=== PATIENT | male | born 1970 | race Caucasian/White ===

== ENCOUNTER 2016-06-22 07:02 | Emergency (ER) | payer OTHER ==
[2016-06-22 07:17] VITALS: BP 104/62
--- NOTE | 2016-06-22 08:45 | UC ---
Nathan Huerta Karl, scribed for Sera Paris DO on 06/22/16 at 0715 . Throat Pain/Nasal Nestor HPI - HPI Summary HPI Summary: Pt is a 45 y/o male that presents to [facility] c/o sinus pressure and pain that began 5 days ago. Pt reported that his congestion and pain has progressed to his chest and in his ears. Pt stated he can feel his congestion begin in his chest and work its way up his throat and into his sinuses. Pt stated that he has suffered from asthma related allergy issues that have been causing him congestion every 6 weeks and feels as if today "the cycle is beginning again." Pt also gets minor relief from a holistic nasal inhaler and a steroid inhaler. Pt reported a productive cough with white sputum, ear ache, and difficulty breathing. Pt denied fever, chills, diaphoresis, sore throat, abd pain, nausea, and ADAMS. Hx: asthma, seasonal/environmental allergies. - History of Current Complaint Stated Complaint: SINUS CONGESTION Hx Obtained From: Patient Onset/Duration: Gradual Onset, Lasting Days, Still Present Severity: Mild Pain Intensity: 4 - sinus pain Pain Scale Used: 0-10 Numeric Cough: Productive - w/ white sputum Associated Signs & Symptoms: Positive: Sinus Discomfort, Nasal Discharge. Negative: Dysphagia, Drooling, Fever Related History: Seasonal Allergies - Allergies/Home Medications Allergies/Adverse Reactions: Allergies Allergy/AdvReac Type Severity Reaction Status Date / Time Seasonal/Environmental Allergy Congestion Uncoded 01/21/16 07:18 Allergies PMH/Surg Hx/FS Hx/Imm Hx Previously Healthy: Yes Endocrine History Of: Denies: Diabetes, Thyroid Disease Cardiovascular History Of: Denies: Cardiac Disorders, Hypertension Respiratory History Of: Reports: Asthma Denies: COPD GI/ History Of: Denies: Ulcer - Surgical History Surgical History: None Surgery Procedure, Year, and Place: [place] [id number] - Family History Known Family History: Positive: Other - Lung CA Negative: Hypertension, Diabetes - Social History Occupation: Employed Full-time Alcohol Use: Weekly Alcohol Amount: 3/WEEK Substance Use Type: None Smoking Status (MU): Never Smoked Tobacco Have You Smoked in the Last Year: No - Immunization History Most Recent Influenza Vaccination: 2014/2015 Review of Systems Constitutional: Negative Skin: Negative Eyes: Negative ENT: Ear Ache, Other - sinus congestion Respiratory: Cough, Other - difficulty breathing Cardiovascular: Negative Gastrointestinal: Negative Genitourinary: Negative Motor: Negative Neurovascular: Negative Musculoskeletal: Negative Neurological: Negative Psychological: Negative All Other Systems Reviewed And Are Negative: Yes Physical Exam Triage Information Reviewed: Yes Appearance: Well-Appearing, No Pain Distress, Well-Nourished Vital Signs: Initial Vital Signs Temp 97.7 F 06/22/16 07:11 Pulse 90 06/22/16 07:11 Resp 16 06/22/16 07:11 BP 104/62 06/22/16 07:11 Pulse Ox 97 06/22/16 07:11 Vital Signs Reviewed: Yes Eyes: Positive: Conjunctiva Clear. Negative: Discharge ENT: Positive: Hearing grossly normal, Pharynx normal, Nasal congestion, TMs normal, Other: - maxillary sinus tenderness, pale boggy nasal mucosa. Negative : Tonsillar swelling, Tonsillar exudate, Trismus, Muffled/hoarse voice Dental Exam: Normal Neck exam: Normal Neck: Positive: Supple Respiratory: Positive: Lungs clear, No respiratory distress, No accessory muscle use, Other: - prolonged expiration Cardiovascular: Positive: RRR, No Murmur Musculoskeletal Exam: Normal Neurological: Positive: Alert, Muscle Tone Normal Psychological Exam: Normal Psychological: Positive: Age Appropriate Behavior Skin Exam: Normal, Other - warm, dry, normal color Throat Pain/Nasal Course/Dx - Differential Dx/Diagnosis Differential Diagnosis/HQI/PQRI: Otitis Media, Sinusitis, URI Provider Diagnoses: allergic rhinitis, asthma Discharge - Discharge Plan Condition: Stable Disposition: HOME Prescriptions: predniSONE TAB* [Deltasone TAB*] 40 mg PO DAILY #10 tab Patient Education Materials: Asthma (ED), Allergic Rhinitis (ED) Referrals: Hannah Sandhu MD [Primary Care Provider] - If Needed Additional Instructions: CORTICOSTEROID MEDICATION: You have been given a medicine of the cortisone class. This medication is used to control inflammation or allergy. It is usually only given for a short period of time, until the acute process subsides. There are usually no side effects from short-term use of cortisone-like medications. Some persons feel an increased sense of well-being and are not sleepy at bedtime. Long-term use of cortisone medications is best avoided, unless required for a severe condition. If your condition does not remit, or relapses after the course of corticosteroid medication, you should consult your physician. Contact the physician if you develop lightheadedness, black or tarry stools , swelling of the legs, or significant rapid change in weight. The documentation as recorded by the Nathan rushing Karl accurately reflects the service I personally performed and the decisions made by me, Sera Paris DO.
== END 2016-06-22 08:00 | disposition home or self-care (01) ==
LOC: UCEAST 07:02
DX: J45.909 Unspecified asthma, uncomplicated (principal)
CPT/HCPCS: 99212; G0463

== ENCOUNTER 2016-08-13 17:25 | Emergency (ER) | payer OTHER ==
[2016-08-13 17:59] VITALS: BP 125/66
[2016-08-13] MEDS ORDERED: Acetaminophen TAB* 325 MG PO ONE (18:20)
[2016-08-13] MEDS ORDERED: Polymyx/Trimethoprim OPTH* 10 ML BTL BOTH EYES ONE (18:21)
--- NOTE | 2016-08-13 18:49 | UC ---
FLU HPI - HPI Summary HPI Summary: pt presents with c/o generalized malaise, chills, cough, nasal congestion, "eye burning" and feels "just miserable" Symptoms have been worsening over the last 4 days. - History of Current Complaint Chief Complaint: UCRespiratory Stated Complaint: RESP COMPLAINT Time Seen by Provider: 08/13/16 18:04 Hx Obtained From: Patient Onset/Duration: Gradual Onset, Lasting Days - 4 Associated Signs & Symptoms: Positive: Fever, Myalgia, Cough, Nasal Congestion - Allergy/Home Medications Allergies/Adverse Reactions: Allergies Allergy/AdvReac Type Severity Reaction Status Date / Time Seasonal/Environmental Allergy Congestion Uncoded 01/21/16 07:18 Allergies PMH/Surg Hx/FS Hx/Imm Hx Previously Healthy: Yes Endocrine History Of: Denies: Diabetes, Thyroid Disease Cardiovascular History Of: Denies: Cardiac Disorders, Hypertension Respiratory History Of: Reports: Asthma Denies: COPD GI/ History Of: Denies: Ulcer - Surgical History Surgical History: None Surgery Procedure, Year, and Place: [place] [address] - Family History Known Family History: Positive: Other - Lung CA Negative: Hypertension, Diabetes - Social History Alcohol Use: Weekly Alcohol Amount: 3/WEEK Substance Use Type: None Smoking Status (MU): Never Smoked Tobacco Have You Smoked in the Last Year: No - Immunization History Most Recent Influenza Vaccination: 2014/2015 Review of Systems Constitutional: Fever, Chills, Fatigue Skin: Negative Eyes: Drainage, Eye Redness, Photophobia, Other - "burning" sensation ENT: Sore Throat Respiratory: Cough, Other - wheezing Cardiovascular: Negative Gastrointestinal: Negative Genitourinary: Negative Motor: Negative Neurovascular: Negative Musculoskeletal: Myalgia Neurological: Negative Psychological: Negative All Other Systems Reviewed And Are Negative: Yes Physical Exam Triage Information Reviewed: Yes Appearance: Ill-Appearing Vital Signs: Initial Vital Signs Temp 100.9 F 08/13/16 17:53 Pulse 92 08/13/16 17:53 Resp 16 08/13/16 17:53 BP 125/66 08/13/16 17:53 Pulse Ox 95 08/13/16 17:53 Vital Signs Reviewed: Yes Eyes: Positive: Conjunctiva Inflamed, Discharge - yellow, purulent ENT Exam: Other ENT: Positive: Nasal congestion, TM bulging - Right TM, TM red - right TM Neck exam: Normal Respiratory Exam: Other Respiratory: Positive: Wheezing Cardiovascular Exam: Normal Musculoskeletal Exam: Normal Neurological Exam: Normal Psychological Exam: Normal Skin Exam: Normal Flu Course/Dx - Differential Dx/Diagnosis Differential Diagnosis/HQI/PQRI: Bronchitis, Influenza, Other - otits media right ear, conjunctivitis Provider Diagnoses: conjunctivitis. otitis media right ear. Bronchitis Discharge - Discharge Plan Condition: Stable Disposition: HOME Prescriptions: Azithromycin TAB* [Zithromax TAB (Z-AMISHA) 250 mg #6 tabs] 2 tab PO .TODAY, THEN 1 DAILY #1 amisha Patient Education Materials: Otitis Media (ED), Acute Bronchitis (ED), Conjunctivitis (ED) Forms: *Work Release Referrals: Hannah Sandhu MD [Primary Care Provider] -
== END 2016-08-13 19:30 | disposition home or self-care (01) ==
LOC: UCEAST 17:25
DX: H10.30 Unspecified acute conjunctivitis, unspecified eye (principal); H66.91 Otitis media, unspecified, right ear; J40 Bronchitis, not specified as acute or chronic
CPT/HCPCS: 87502; 99212; A9270-GY; G0463

== ENCOUNTER 2016-08-14 15:37 | Emergency (ER) | payer OTHER ==
[2016-08-14 15:45] VITALS: BP 104/61
--- NOTE | 2016-08-14 16:13 | UC ---
Eye Complaint HPI - HPI Summary HPI Summary: increases redness and itching around eyes after beginning Polytrim yesterday - History of Current Complaint Chief Complaint: UCEye Stated Complaint: EYE COMPLAINT Time Seen by Provider: 08/14/16 15:40 Hx Obtained From: Patient Onset/Duration: Sudden Onset, Lasting Days - 1, Still Present Timing: Constant Severity Initially: Mild Severity Currently: Moderate Pain Intensity: 3 Pain Scale Used: 0-10 Numeric Location of Injury: Eye Lid (lower), Eye Lid (upper) Aggravating Factor(s): Nothing Alleviating Factor(s): Nothing Associated Signs And Symptoms: Positive: Drainage (Clear). Negative: Vision Impairment Bilateral, Vision Impairment Right, Vision Impairment Left - Allergies/Home Medications Allergies/Adverse Reactions: Allergies Allergy/AdvReac Type Severity Reaction Status Date / Time Seasonal/Environmental Allergy Congestion Uncoded 01/21/16 07:18 Allergies PMH/Surg Hx/FS Hx/Imm Hx Previously Healthy: No Respiratory History Of: Reports: Asthma Denies: COPD GI/ History Of: Denies: Ulcer - Surgical History Surgical History: None Surgery Procedure, Year, and Place: [place] [id number] - Family History Known Family History: Positive: None, Other - Lung CA Negative: Hypertension, Diabetes - Social History Occupation: Employed Full-time Lives: With Family Alcohol Use: Weekly Alcohol Amount: 3/WEEK Substance Use Type: None Smoking Status (MU): Never Smoked Tobacco Have You Smoked in the Last Year: No - Immunization History Most Recent Influenza Vaccination: Review of Systems Constitutional: Negative Skin: Negative Eyes: Negative, Eye Redness ENT: Negative Respiratory: Negative Cardiovascular: Negative Gastrointestinal: Negative Genitourinary: Negative Motor: Negative Neurovascular: Negative Musculoskeletal: Negative Neurological: Negative Psychological: Negative All Other Systems Reviewed And Are Negative: Yes Physical Exam Triage Information Reviewed: Yes Appearance: Well-Appearing, No Pain Distress, Well-Nourished Vital Signs: Initial Vital Signs Pulse 84 08/14/16 15:41 Resp 18 08/14/16 15:41 BP 104/61 08/14/16 15:41 Pulse Ox 94 08/14/16 15:41 Eye Exam: Normal Eyes: Positive: Conjunctiva Inflamed, Other: - erythema around both eye with fluid filled swelling ENT Exam: Normal ENT: Positive: Normal ENT inspection, Hearing grossly normal, Pharynx normal, TMs normal. Negative: Nasal congestion, Nasal drainage, Tonsillar swelling, Tonsillar exudate, Trismus, Muffled/hoarse voice Dental Exam: Normal Neck exam: Normal Neck: Positive: Supple, Nontender, No Lymphadenopathy Respiratory Exam: Normal Respiratory: Positive: Chest non-tender, Lungs clear, Normal breath sounds, No respiratory distress, No accessory muscle use Cardiovascular Exam: Normal Cardiovascular: Positive: RRR, No Murmur, Pulses Normal, Brisk Capillary Refill Musculoskeletal Exam: Normal Musculoskeletal: Positive: Strength Intact, ROM Intact, No Edema Neurological Exam: Normal Neurological: Positive: Alert, Muscle Tone Normal Psychological Exam: Normal Psychological: Positive: Normal Response To Family Skin Exam: Normal Eye Complaint Course/Dx - Course Course Of Treatment: Stop polytrim, may use zaditor and zyrtec cool compresses - Differential Dx/Diagnosis Differential Diagnosis/HQI/PQRI: Conjunctivitis, Keratitis, Penetrating Injury, Periorbital Cellulitis, Orbital Cellulitis Provider Diagnoses: Localized allergic reaction to polytrim Discharge - Discharge Plan Condition: Stable Disposition: HOME Patient Education Materials: Cetirizine (By mouth), Ketotifen (Into the eye), Allergies (ED), Conjunctivitis (ED) Referrals: Hannah Sandhu MD [Primary Care Provider] - If Needed
== END 2016-08-14 16:03 | disposition home or self-care (01) ==
LOC: UCEAST 15:37
DX: L29.8 Other pruritus (principal); T36.8X5A Adverse effect of other systemic antibiotics, initial encounter; Y92.9 Unspecified place or not applicable
CPT/HCPCS: 99212; G0463

== ENCOUNTER 2016-10-12 12:47 | Emergency (ER) | payer OTHER ==
[2016-10-12 13:05] VITALS: BP 106/74
--- NOTE | 2016-10-12 13:33 | UC ---
Respiratory Complaint HPI - HPI Summary HPI Summary: Nasal sowmya, ST, cough starting 2 days ago. Denies fever, is having trouble breathing and using albuterol several times per day/night to manage symptoms. Was here 2 months ago after a week of the same sx; had developed fevers at that time, doesn't want the same to happen. Has had pulm testing with PCP. - History of Current Complaint Chief Complaint: UCRespiratory Stated Complaint: CONGEST,COUGH,SNEEZE Time Seen by Provider: 10/12/16 12:59 Hx Obtained From: Patient Onset/Duration: Gradual Onset, Lasting Days Timing: Constant Severity Initially: Mild Severity Currently: Moderate Character: Cough: Productive Aggravating Factors: Deep Breaths, Recumbent Position Alleviating Factors: Bronchodilator, Upright Position Associated Signs And Symptoms: Positive: Wheezing, URI, Nasal Congestion - Allergies/Home Medications Allergies/Adverse Reactions: Allergies Allergy/AdvReac Type Severity Reaction Status Date / Time Seasonal/Environmental Allergy Congestion Uncoded 01/21/16 07:18 Allergies PMH/Surg Hx/FS Hx/Imm Hx Previously Healthy: Yes Endocrine History Of: Denies: Diabetes, Thyroid Disease Cardiovascular History Of: Denies: Cardiac Disorders, Hypertension Respiratory History Of: Reports: Asthma Denies: COPD GI/ History Of: Denies: Ulcer - Surgical History Surgical History: None Surgery Procedure, Year, and Place: [place] [address] - Family History Known Family History: Positive: None, Other - Lung CA Negative: Hypertension, Diabetes - Social History Occupation: Employed Full-time Lives: Alone Alcohol Use: Weekly Alcohol Amount: 3/WEEK Substance Use Type: None Smoking Status (MU): Never Smoked Tobacco Have You Smoked in the Last Year: No - Immunization History Most Recent Influenza Vaccination: 2014/2015 Review of Systems Constitutional: Negative Skin: Negative Eyes: Negative ENT: Sore Throat, Nasal Discharge Respiratory: Shortness Of Breath, Cough Cardiovascular: Negative Gastrointestinal: Negative Genitourinary: Negative Motor: Negative Neurovascular: Negative Musculoskeletal: Negative Neurological: Negative Psychological: Negative All Other Systems Reviewed And Are Negative: Yes Physical Exam Triage Information Reviewed: Yes Appearance: Well-Appearing, No Pain Distress, Well-Nourished Vital Signs: Initial Vital Signs Temp 98.7 F 10/12/16 13:00 Pulse 95 10/12/16 13:00 Resp 18 10/12/16 13:00 BP 106/74 10/12/16 13:00 Pulse Ox 99 10/12/16 13:00 Vital Signs Reviewed: Yes Eye Exam: Normal Eyes: Positive: Conjunctiva Clear ENT: Positive: Pharynx normal, Nasal congestion, Nasal drainage, TMs normal, Other: - no sinus tenderness. Negative: Tonsillar swelling, Tonsillar exudate Dental Exam: Normal Neck exam: Normal Neck: Positive: Supple, Nontender, No Lymphadenopathy Respiratory Exam: Normal Respiratory: Positive: Chest non-tender, Lungs clear, Normal breath sounds, No respiratory distress, No accessory muscle use Cardiovascular Exam: Normal Cardiovascular: Positive: RRR, No Murmur Musculoskeletal Exam: Normal Neurological Exam: Normal Neurological: Positive: Alert Psychological Exam: Normal Skin Exam: Normal UC Diagnostic Evaluation - Laboratory O2 Sat by Pulse Oximetry: 99 Respiratory Course/Dx - Course Course Of Treatment: Pt would like azithromycin because it cured his sx 2 months ago. Discussed the fact that viruses still account for most coughing illnesses, even in people with tendency toward bacterial complication. Encouraged to monitor temperature and take prednisone, call here if there is new fever or worsening symptoms. - Differential Dx/Diagnosis Provider Diagnoses: URI, likely viral Discharge - Discharge Plan Condition: Stable Disposition: HOME Prescriptions: predniSONE TAB* [Deltasone TAB*] 50 mg PO DAILY #5 tab Patient Education Materials: Upper Respiratory Infection (ED), Bronchospasm (ED ) Referrals: Hannah Sandhu MD [Primary Care Provider] - Additional Instructions: I expect that most respiratory viruses should start to show improvement around the 1-week larry. If you develop fever over 100.3, please call here and leave me a message. It is normal for cough to worsen as nasal congestion improves, but if you are having no improvement whatsoever by next Wednesday, please let me know. I will be working and then Wednesday - Wednesday and should be reachable with a message if your symptoms take a turn for the worse. Severe trouble breathing or concerning symptoms should be seen right away in the emergency department.
== END 2016-10-12 13:33 | disposition home or self-care (01) ==
LOC: UCEAST 12:47
DX: J06.9 Acute upper respiratory infection, unspecified (principal); J45.909 Unspecified asthma, uncomplicated
CPT/HCPCS: 99202; G0463

== ENCOUNTER → 2016-11-06 04:45 | Emergency (ER) | payer OTHER ==
[~2016-11-06 04:45] MED LIST: Ketorolac INJ* 30 MG/ML 1 ML VIAL IV ONE; Ketorolac INJ* 30 MG/ML 1 ML VIAL ONE; Ketorolac INJ* 60 MG/2 ML VIAL IM ONE; Morphine INJ* 4 MG/ML 1 ML SYRINGE IV ONE; NS 0.9% 1000 ML* 1,000 ML IV ONE; Ondansetron INJ* 2 MG/ML VIAL IV ONE
--- NOTE | 2016-11-06 06:39 | ED ---
Beverly Huerta Rebecca, scribed for Pam Ernstuel on 11/06/16 at 0455 . Lower Extremity - HPI Summary HPI Summary: Pt is a 46 y/o M who presents to ED c/o severe R buttock and RLE pain. Sx began suddenly 2 weeks ago and have been constant since onset. Pt was evaluated 1 week ago with a Dx of sciatica, was prescribed muscle relaxants and an anti- inflammatory medication which do not alleviate sx. Pain is currently severe, ranked 10/10 and characterized as shooting and spasmodic. Pain is discrete to the R buttock and RLE. Sx aggravated by sitting and walking, alleviated by nothing. Took 3 Ibuprofen 1 hour [employer], which did not improve sx. Denies any other symptoms including fever. Denies any recent trauma. - History of Current Complaint Chief Complaint: EDExtremityLower Stated Complaint: RIGHT BUTTUCK AND LEG PAIN Hx Obtained From: Patient Onset of Pain: Prior to Arrival Onset/Duration: Still Present - 2 weeks Severity Initially: Moderate Severity Currently: Severe Pain Intensity: 10 Pain Scale Used: 0-10 Numeric Timing: Constant Location: Is Discrete @ - R buttock and RLE Character Of Pain: Sharp, Spasmodic Associated Signs And Symptoms: Positive: Negative. Negative: Fever Aggravating Factor(s): Ambulation Alleviating Factor(s): Nothing - Allergies/Home Medications Allergies/Adverse Reactions: Allergies Allergy/AdvReac Type Severity Reaction Status Date / Time Seasonal/Environmental Allergy Congestion Uncoded 11/06/16 04:47 Allergies PMH/Surg Hx/FS Hx/Imm Hx Endocrine/Hematology History: Denies: Hx Diabetes, Hx Thyroid Disease Cardiovascular History: Denies: Hx Hypertension Respiratory History: Reports: Hx Asthma Denies: Hx Chronic Obstructive Pulmonary Disease (COPD) GI History: Denies: Hx Ulcer - Cancer History Cancer Type, Location and Year: none - Surgical History Surgery Procedure, Year, and Place: [place] [facility] Infectious Disease History: No Infectious Disease History: Denies: Hx Clostridium Difficile, Hx Hepatitis, Hx Human Immunodeficiency Virus (HIV), Hx of Known/Suspected MRSA, Hx Shingles, Hx Tuberculosis, Hx Known/ Suspected VRE, Hx Known/Suspected VRSA, History Other Infectious Disease, Traveled Outside the [place] in Last 30 Days - Family History Known Family History: Positive: Other - Lung CA Negative: Hypertension, Diabetes - Social History Alcohol Use: Weekly Alcohol Amount: 3/WEEK Substance Use Type: Reports: None Smoking Status (MU): Never Smoked Tobacco Have You Smoked in the Last Year: No Review of Systems Negative: Fever Positive: Arthralgia - R buttock and RLE pain All Other Systems Reviewed And Are Negative: Yes Physical Exam - Summary Physical Exam Summary: Appearance: Well appearing, no pain distress Skin: warm, dry, reflects adequate perfusion Head/face: normal Eyes: EOMI, MITZY ENT: normal Neck: supple, nontender Resp: CTA, breath sounds present Cardio: RRR, pulses symm Abd: nontender, soft Bowel: present Musc: strength/ROM intact, lumbar back spasm with no neuromuscular deficits Neuro: normal, sensory motor intact, A&Ox3 Triage Information Reviewed: Yes Vital Signs On Initial Exam: Initial Vitals Temp Pulse Resp BP Pulse Ox 98.5 F 92 18 117/89 94 11/06/16 04:49 11/06/16 04:49 11/06/16 04:49 11/06/16 04:49 11/06/16 04:49 Vital Signs Reviewed: Yes Diagnostics - Vital Signs Vital Signs Temp Pulse Resp BP Pulse Ox 11/06/16 04:49 98.5 F 92 18 117/89 94 - Laboratory Lab Statement: Any lab studies that have been ordered have been reviewed, and results considered in the medical decision making process. - CT CT Abd/Pel CT Interpretation: No Acute Changes - No urinary tract calculi or evidence of urinary tract obstruction seen. No inflammatory process identified in the abdomen or pelvis. No abdominal mass, adenopathy or collection seen. CT Interpretation Completed By: Radiologist Re-Evaluation - Re-Evaluation Second Eval Re-Evaluation Time: 06:32 Change: Improved Comment: Discussed CT results with pt. Pt is feeling better upon administration of medication. Lower Extremity Course/Dx - Course Assessment/Plan: Pt is a 46 y/o M with a CC of severe R buttock and RLE shooting and spasmodic pain for 2 weeks, unchanged by muscle relaxants and anti- inflammatory medications. Recent Dx of sciatica ([address] Abd/Pel reveals no acute findings. Pt administered Toradol in the course of the ED after refusing morphine and zofran. Pt will be D/C to home with Dx of back pain and sciatica with a follow up with his PCP and an Rx for Percocet. - Diagnoses Provider Diagnoses: Back pain, Sciatica Discharge - Discharge Plan Condition: Stable Disposition: HOME Prescriptions: oxyCODONE/Acetamin 5/325 MG* [Percocet 5/325 TAB*] 1 tab PO Q8H PRN #15 tab MDD 3 PRN Reason: Pain Patient Education Materials: Back Pain (ED), Sciatica (ED) Referrals: Hannah aSndhu MD [Primary Care Provider] - 3 Days (Follow up within the next 3 days. ) The documentation as recorded by the Beverly rushing Rebecca accurately reflects the service I personally performed and the decisions made by Sujata petit Emmanuel.
[2016-11-06 07:05] VITALS: BP 116/61
[2016-11-06 07:14] LABS: Hematocrit 47 % (42-52); Hemoglobin 15.9 g/dl (14.0-18.0); Mean Corpuscular HGB Conc 34 g/dl (31-36); Mean Corpuscular Hemoglobin 29 pg (27-31); Mean Corpuscular Volume 86 fL (80-94); Mean Platelet Volume 8 um3 (7.4-10.4); Red Blood Count 5.46 10^6/ul (4.0-5.4); Red Cell Distribution Width 14 % (10.5-15); White Blood Count 7.7 10^3/ul (3.5-10.8)
[2016-11-06 07:32] LABS: Albumin 4.1 g/dL (3.2-5.2); BUN/Creatinine Ratio 17.6 (8-20); Calcium 9.1 mg/dL (8.6-10.3); EGFR African American 100.2 (>60); Globulin 2.1 g/dL (2-4); Potassium 4.2 mmol/L (3.5-5.0); Total Bilirubin 0.7 mg/dL (0.2-1.0); Total Protein 6.2 g/dL (6.4-8.9)
--- NOTE | 2016-11-06 08:12 | RAD ---
INDICATION: Right flank and hip pain. COMPARISON: Comparison is made with a prior CT angiogram of the chest from January 10, 2014. TECHNIQUE: A CT scan of the abdomen and pelvis was performed without intravenous or oral contrast. Contiguous axial sections were obtained from the lung bases through the symphysis pubis. Images were reconstructed in the coronal and sagittal planes. FINDINGS: The lung bases are clear. No pleural effusion is present. There appears to be a trace pericardial effusion. The liver and spleen are within normal limits in size without significant focal abnormality on this noncontrast study. No calcified gallstones are seen. The pancreas appears to be within normal limits in size. The adrenal glands and kidneys are normal in size. No renal calculi are seen. There is no evidence for hydronephrosis. No ureteral or bladder calculi are appreciated. The prostate gland appears enlarged measuring 5.4 cm in transverse dimension. The aorta is normal in caliber without significant calcific plaque. No significant enlarged retroperitoneal lymph nodes are seen. The exam is limited due to a possibly of intra-abdominal fat and noncontrast study. The stomach, small and large bowel appear nondistended. There is a calcific density present in the transverse duodenum and possibly representing a pill. The appendix is not visualized. There is a large amount of retained stool. No free intraperitoneal air or fluid is seen. No significant focal osseous abnormality is seen. IMPRESSION: 1. NO EVIDENCE FOR ACUTE FINDING OR CAUSE FOR THE PATIENT'S ABDOMINAL PAIN IS SEEN. 2. LARGE AMOUNT OF RETAINED STOOL THROUGHOUT THE COLON.
== END | disposition home or self-care (01) ==
LOC: ED 04:45
DX: M54.30 Sciatica, unspecified side (principal); R10.9 Unspecified abdominal pain; M54.9 Dorsalgia, unspecified
CPT/HCPCS: 36415; 74176; 80053; 83690; 85025; 99283; J1885; J2270; J2405